=== PATIENT | male | born 1980 | race Caucasian/White ===

== ENCOUNTER 2022-03-19 07:30 | Outpatient (CLI) | payer OTHER, SELFPAY ==
--- NOTE | 2022-04-07 18:32 | WPDHOMESLEEP ---
Sleep Study - Home Unattended Date of Study: 03/19/22 Ordering Provider: India Steele MD Interpreting Provider: Yasmin Zhu, DO Home Sleep Study Type: Watch PAT Height: 1.75 m Weight: 115.666 kg Body Mass Index: 37.6 Neck Circumference (inches): 17.75 [place]: 7 Reason for Sleep Study Daytime hypersomnia Sleep History The patient is a 41-year-old male with hypertension, hypogonadism, hyperlipidemia and vitamin-D deficiency that had a sleep study ordered by his primary care physician for evaluation of sleep apnea. The patient is self employed. The patient denies awakening from sleep short of breath. He denies awakening at night with heartburn, belching or cough. He frequently snores and is occasionally loud enough that others complain. He rarely has trouble sleeping when he has a cold. He denies waking up gasping for air throughout the night. He denies having breathing problems observed by himself or others. He rarely sweats excessively at night. He occasionally has heart palpitations or irregular heartbeats throughout the night. He occasionally falls asleep during the day but never while driving. He denies sleep paralysis and cataplexy. He occasionally has trouble at school or work due to sleepiness. He frequently has vivid dreamlike scenes upon awakening or falling asleep. He denies feeling afraid of going to sleep. He denies having nightmares. He occasionally remembers his dreams. He rarely has thoughts racing through his mind. He denies feeling sad or depressed. He rarely has anxiety. He occasionally has muscular tension. He occasionally notices parts of his body jerk. He rarely kicks during the night. He frequently has crawling and aching feelings in his legs but rarely has leg pain during the night. He denies grinding his teeth during sleep and awakening with morning jaw pain. He is frequently bothered by pain during the day but never awakened by pain during the night. He constantly wakes up feeling stiff the morning. He occasionally wakes up with sore achy muscles. He constantly wakes up with pain in the neck, spine and other joints. He goes to bed between 10-11 p.m. on both weekdays and weekends. It takes him 15-20 minutes to fall asleep. He wakes up 2-3 times throughout the night to urinate. He is able to fall back asleep within 5 minutes. He wakes up at 6:30 a.m. on weekdays and 8:00 a.m. on the weekends. He typically gets 6-8 hours of sleep per night. He will stay in bed for 10 minutes after waking up in the morning. He currently lives with his and 3 children. He does not consume any caffeinated beverages within 2 hours of bedtime. He does not engage in physical exercise before bedtime. He will read and watch television before falling asleep. He denies taking naps in afternoon or the evening. He drinks 3 caffeinated beverages per day. He quit smoking cigarettes several years ago. He denies alcohol and recreational drug use. [facility] Past Medical History Medical History Essential (primary) hypertension Low testosterone level in male Other and unspecified hyperlipidemia Vitamin D deficiency Family History Family History Grandparent Diabetes mellitus Acute myocardial infarction Cerebrovascular accident Family history of chronic obstructive pulmonary disease Family history of emphysema Mother Family history of osteoporosis Father Hypertension Social History Social History Smoking status: Former smoker Smoking end date: 07/05/17 Alcohol intake: never Substance use: never Substance use type: does not use Medications Home Medications Medication Instructions Recorded Confirmed Type cholecalciferol (vitamin D3) 50 50 mcg PO DAILY 04/10/21 02/04/22 History mcg (2,000 unit) capsul
[2022-04-07 22:30] VITALS: BMI 37.6
== END 2022-03-20 13:23 | disposition home or self-care (01) ==
PROVIDERS: PCP Family Medicine; Visit Provider Family Medicine
DX: G47.10 Hypersomnia, unspecified (principal); G47.9 Sleep disorder, unspecified
CPT/HCPCS: 95800

== ENCOUNTER 2023-07-13 09:31 | Outpatient (CLI) | payer OTHER, SELFPAY ==
--- NOTE | 2023-08-02 18:14 | WPDSLEEPSTUD ---
Sleep Study Date of Study: 07/13/23 Ordering Provider: India Steele MD Interpreting Physician: Yasmin Zhu DO Sleep Study Type: Split Polysomnogram Height: 1.75 m Weight: 127.459 kg Body Mass Index: 41.5 Neck Circumference (inches): 19 [place]: 7 Reason for Sleep Study Snoring, daytime hypersomnia Sleep History The patient is a 42 year old male with hypertension, hypogonadism hyperlipidemia and history of tobacco use that had a sleep study ordered by his primary care physician for evaluation of sleep apnea. The patient denies awakening from sleep short of breath. He denies awakening at night with heartburn, belching or cough. He constantly snores and it is frequently loud enough that others complain. He occasionally has trouble sleeping when he has a cold. He denies waking up gasping for air throughout the night. He denies having breathing problems at night observed by himself or others. He denies sweating excessively at night. He occasionally has heart palpitations or irregular heartbeats during the night. He occasionally falls asleep during the day but never while driving. He denies sleep paralysis and cataplexy. He occasionally has trouble at school or work due to sleepiness. He occasionally experiences vivid dreamlike scenes upon awakening or falling asleep. He denies feeling afraid of going to sleep. He rarely has nightmares. He frequently remembers his dreams. He occasionally has thoughts racing through his mind. He rarely feels sad, depressed or anxious. He rarely has muscular tension. He rarely notices parts of his body jerk. He rarely kicks during the night. He occasionally has crawling and aching feelings in his legs but rarely has leg pain during the night. He denies grinding his teeth during sleep and denies awakening with morning jaw pain. He is occasionally bothered by pain during the day but never awakened by pain during the night. He occasionally wakes up feeling stiff in the morning. He occasionally wakes up with sore or achy muscles. He occasionally wakes up pain in the neck, spine and other joints. He goes to bed at 10:00 p.m. on weekdays and between 10-11 p.m. on the weekends. The amount of time it takes for him to fall asleep is variable. He wakes up 3 times per night at most. When he awakens, he will use the restroom and get a drink. He is able to fall back asleep within a few minutes. He wakes up at 6:30 a.m. weekdays and 8:00 a.m. on weekends. He typically gets 6-8 hours of sleep per night. He denies staying in bed after waking up in the morning on weekdays but will stay in bed for 20 minutes on the weekends. He currently lives with his and 3 children. He denies consuming any caffeinated beverages within 2 hours of bedtime. He denies engaging in physical exercise before bedtime. He will occasionally reading watch television before falling asleep. He denies taking naps in the afternoon or the evening. He consumes 3 caffeinated beverages per day. He quit smoking cigarettes over 5 years ago. He denies alcohol and recreational drug use. PMFSH Past Medical History Medical History Essential (primary) hypertension Low testosterone level in male Other and unspecified hyperlipidemia Tinnitus of both ears Vitamin D deficiency Family History Family History Grandparent Diabetes mellitus Acute myocardial infarction Cerebrovascular accident Family history of chronic obstructive pulmonary disease Family history of emphysema Mother Family history of osteoporosis Father Hypertension Social History Social History Smoking status: Former smoker (< 15 pack years) Smoking end date: 07/05/17 Alcohol intake: never Substance use: never Substance use type: does not use Lack of Transportation:
[2023-08-02 18:19] VITALS: BMI 41.5
== END 2023-07-14 06:05 | disposition home or self-care (01) ==
PROVIDERS: PCP Family Medicine; Visit Provider Family Medicine
DX: G47.33 Obstructive sleep apnea (adult) (pediatric) (principal); G47.9 Sleep disorder, unspecified; G47.10 Hypersomnia, unspecified; R29.818 Other symptoms and signs involving the nervous system
CPT/HCPCS: 95811

== ENCOUNTER 2023-12-22 01:36 | Day surgery (SDC) | payer OTHER, SELFPAY ==
[2023-12-09 09:43] VITALS: BMI 40.0
[2023-12-22 09:37] VITALS: BP 158/97; PULSE 80; RESP 20; TEMP 36.6; O2SAT 80; BMI 41.8
[2023-12-22] MEDS: LACTATED RINGERS 1,000 ML 150 ML IV CONT (09:46)
--- NOTE | 2023-12-22 10:08 | WPDANESEPPF ---
Anes - Initial Pre Proc Eval Procedure: Operation Date: 12/22/23 11:00 Proposed Procedures p Screening Colonoscopy - Kelechi Leonard MD Date/Time: 12/22/23 10:08 Surgeon: Kelechi Leonard MD Pre Op Diagnosis: Neoplasm screening Patient Data Age: 43 Gender: M Height: 1.75 m Weight: 128.6 kg Last Vital Signs Temp 98 F 12/22/23 09:37 Pulse 80 12/22/23 09:37 Resp 20 12/22/23 09:37 BP 158/97 H 12/22/23 09:37 Pulse Ox 80 L 12/22/23 09:37 O2 Del Method Room Air 12/22/23 09:37 Allergies Allergy/AdvReac Type Severity Reaction Status Date / Time No Known Allergies Allergy Mild Verified 12/22/23 09:35 Home Medications Medication Instructions Recorded Confirmed Type cholecalciferol (vitamin D3) 50 50 mcg PO DAILY 04/10/21 12/22/23 History mcg (2,000 unit) capsule testosterone enanthate 75 mg/0.5 75 mg subcut WEEKLY 02/04/22 12/22/23 History mL subcutaneous auto-injector atorvastatin 20 mg tablet (Lipitor) 20 mg PO QHS #90 tabs 07/26/23 12/22/23 Rx CPAP and supplies #1 ea 09/21/23 12/22/23 Rx lisinopril 20 1 tablet PO DAILY #90 tabs 11/12/23 12/22/23 Rx mg-hydrochlorothiazide 25 mg tablet Patient hx anesthesia problems: none Family hx anesthesia problems: none Results Review: All pre-operative results and documents have been reviewed as part of the pre-operative evaluation. [facility] Past Medical History Medical History Essential (primary) hypertension Low testosterone level in male Other and unspecified hyperlipidemia Tinnitus of both ears Vitamin D deficiency Family History Family History Grandparent Diabetes mellitus Acute myocardial infarction Cerebrovascular accident Family history of chronic obstructive pulmonary disease Family history of emphysema Mother Family history of osteoporosis Father Hypertension Social History Social History Smoking packs per day: 1 Smoking cigarettes per day: 20.0 Years smoked: 8 Smoking pack-years: 8.00 Smoking status: Former smoker Tobacco type: cigarettes Smoking end date: 07/05/17 Alcohol intake: never Substance use: never Substance use type: does not use Lack of Transportation: No Lack of Food: Never True Current Housing: I Have Housing Concerned About Future Housing: No Difficulty Paying Gas/Electric Bills: No Difficulty Paying for Meds: No Currently Unemployed: No Education: High School Diploma/GED Difficulty w/ Childcare or Family Care: No Spiritual care concerns: No Anes - Eval Final PreProcedure Day of Procedure 12/22/23 10:08 Patient weight: obese Heart: regular rate and rhythm Lungs: clear to auscultation Airway: Mallampati scale class II Neurological: alert and oriented Last oral intake: >/= 8 hours ASA classification: III Emergent: no Anesthetic plan: proceed Anesthesia type and monitoring: general and standard monitoring Results Review: All pre-operative results and documents have been reviewed as part of the pre-operative evaluation. Pt w HTN, hyperlipidemia, SARAH on CPAP. Informed Consent: The patient's anesthetic plan and its attendant risks and benefits were discussed with the patient/family/POA. Questions were solicited and answers provided to the satisfaction of the patient/family/POA.
--- NOTE | 2023-12-22 10:41 | PM.HPGS ---
History of Present Illness History of Present Illness Consent: Risks, benefits, and alternatives have been discussed and questions answered. Patient agrees to proceed with procedure. Chief complaint: Neoplasm screening Narrative: Tex Zapata is a 43 year old male here for first screening colonoscopy Review of Systems Review of Systems: All systems reviewed & are unremarkable except as noted in HPI and below PMFSH Past Medical History Medical History (Updated 12/22/23 @ 10:43 by Kelechi Leonard MD) Colon cancer screening Essential (primary) hypertension Low testosterone level in male Other and unspecified hyperlipidemia Tinnitus of both ears Vitamin D deficiency Family History Family History Grandparent Diabetes mellitus Acute myocardial infarction Cerebrovascular accident Family history of chronic obstructive pulmonary disease Family history of emphysema Mother Family history of osteoporosis Father Hypertension Social History Social History Smoking packs per day: 1 Smoking cigarettes per day: 20.0 Years smoked: 8 Smoking pack-years: 8.00 Smoking status: Former smoker Tobacco type: cigarettes Smoking end date: 07/05/17 Alcohol intake: never Substance use: never Substance use type: does not use Lack of Transportation: No Lack of Food: Never True Current Housing: I Have Housing Concerned About Future Housing: No Difficulty Paying Gas/Electric Bills: No Difficulty Paying for Meds: No Currently Unemployed: No Education: High School Diploma/GED Difficulty w/ Childcare or Family Care: No Spiritual care concerns: No Meds Home Medications and Allergies Home Medications Medication Instructions Recorded Confirmed Type cholecalciferol (vitamin D3) 50 50 mcg PO DAILY 04/10/21 12/22/23 History mcg (2,000 unit) capsule testosterone enanthate 75 mg/0.5 75 mg subcut WEEKLY 02/04/22 12/22/23 History mL subcutaneous auto-injector atorvastatin 20 mg tablet (Lipitor) 20 mg PO QHS #90 tabs 07/26/23 12/22/23 Rx CPAP and supplies #1 ea 09/21/23 12/22/23 Rx lisinopril 20 1 tablet PO DAILY #90 tabs 11/12/23 12/22/23 Rx mg-hydrochlorothiazide 25 mg tablet Allergies Allergy/AdvReac Type Severity Reaction Status Date / Time No Known Allergies Allergy Mild Verified 12/22/23 09:35 Vital Signs Vital Signs - 24 hr 12/22/23 09:37 Temperature 98 F Pulse Rate 80 Respiratory Rate 20 Blood Pressure 158/97 H Pulse Oximetry 80 L Oxygen Delivery Room Air Exam Const: General: comfortable and no acute distress HENMT: Face/Nose/Sinus: Normal nares present Eyes: General: appearance normal, both eyes and all related structures Neck: Neck: no JVD Resp: Auscultation: clear to auscultation bilaterally Cardio: Rate: regular rate Rhythm: regular rhythm GI: Inspection: non-distended GI Palp: Yes Soft to palpation Skin: General skin exam: normal color Neuro: General: gait normal Speech: normal speech Extrem: General: normal to inspection Psych: Mental Status: mental status grossly normal Assessment and Plan Assessment and plan (1) Colon cancer screening: Code(s): Z12.11 - Encounter for screening for malignant neoplasm of colon Status: Acute Assessment and Plan: colonoscopy
[2023-12-22 10:59] VITALS: BP 91/59; PULSE 75; RESP 15; O2SAT 96
[2023-12-22 11:09] VITALS: BP 115/65; PULSE 76; RESP 21; O2SAT 98
[2023-12-22 11:19] VITALS: BP 113/77; PULSE 85; RESP 20; O2SAT 98
== END 2023-12-22 11:36 | disposition home or self-care (01) ==
PROVIDERS: PCP Family Medicine; Visit Provider Internal Medicine Gastroenterology
PROC: 0DJD8ZZ Inspection of Lower Intestinal Tract, Via Natural or Artificial Opening Endoscopic (ICD-10-PCS; CPT 45378; principal; 2023-12-22 11:00)
DX: Z12.11 Encounter for screening for malignant neoplasm of colon (principal); D12.3 Benign neoplasm of transverse colon; K64.8 Other hemorrhoids; I10 Essential (primary) hypertension; E78.49 Other hyperlipidemia; E55.9 Vitamin D deficiency, unspecified; Z79.890 Hormone replacement therapy; Z87.891 Personal history of nicotine dependence; E66.9 Obesity, unspecified; Z68.41 Body mass index [BMI] 40.0-44.9, adult
CPT/HCPCS: 45380; 88305; J2001; J2704; J7120

== ENCOUNTER 2025-05-13 17:13 | Emergency (ER) | payer OTHER, SELFPAY ==
--- NOTE | ~2025-05-13 | XR_ITS ---
EXAMINATION: XR finger 5th LT min 2V, 05/13/2025 17:53 DIRECTOR HEALTH HISTORY: laceration COMPARISON: No comparisons available. Findings: No acute fracture or malalignment. No significant degenerative changes. Soft tissues unremarkable. Impression: No acute fracture or malalignment. Reviewed, dictated and finalized at location P. [facility] Impression: No acute fracture or malalignment.
--- NOTE | 2025-05-13 17:36 | ED.WOUNDLAC ---
HPI - Wound/Laceration General Chief Complaint: Wound/Laceration Stated Complaint: laceration Time Seen by Provider: 05/13/25 17:19 Source: patient Mode of arrival: ambulatory Limitations: no limitations History of Present Illness HPI narrative: This is a 44 year old male that presents to the ER for laceration to the left 5th finger. Sustained just prior to arrival. Reports he accidentally cut his finger with a knife. Not up to date on tetanus. Reports decreased ROM. Denies numbness. Related Data Home Medications ?Medication ?Instructions ?Recorded ?Confirmed ?Last Taken ?Type cholecalciferol (vitamin D3) 50 50 mcg PO DAILY 04/10/21 10/19/24 12/21/23 History mcg (2,000 unit) capsule testosterone enanthate 75 mg/0.5 75 mg subcut WEEKLY 02/04/22 10/19/24 Unknown History mL subcutaneous auto-injector Allergies Allergy/AdvReac Type Severity Reaction Status Date / Time No Known Allergies Allergy Mild Verified 10/19/24 09:38 Review of Systems Review of Systems: All systems reviewed & are unremarkable except as noted in HPI and below PMFSH Past Medical History Medical History Colon cancer screening Tinnitus of both ears Vitamin D deficiency Essential (primary) hypertension Other and unspecified hyperlipidemia Low testosterone level in male Family History Family History Grandparent Diabetes mellitus Acute myocardial infarction Cerebrovascular accident Family history of chronic obstructive pulmonary disease Family history of emphysema Mother Family history of osteoporosis Father Hypertension Social History Social History Smoking packs per day: 1 Smoking cigarettes per day: 20.0 Years smoked: 8 Smoking pack-years: 8.00 Tobacco type: cigarettes Smoking end date: 07/05/17 Alcohol intake: never Substance use: never Substance use type: does not use Lack of Transportation: No Lack of Food: Never True Current Housing: I Have Housing Concerned About Future Housing: No Difficulty Paying Gas/Electric Bills: No Difficulty Paying for Meds: No Currently Unemployed: No Education: High School Diploma/GED Difficulty w/ Childcare or Family Care: No Spiritual care concerns: No Exam Narrative: GENERAL: Well-appearing, well-nourished, and in no acute distress. HEAD: Normocephalic, atraumatic. EYES: EOMI. EXTREMITIES: Patient unable to flex at the left fifth finger DIP joint. No edema. 2cm linear laceration into subcutaneous tissue to the 5th finger palmar aspect distal phalanx SKIN: Warm, dry, no rash. NEURO: No focal deficits. Alert and oriented x3. PSYCH: Normal mood and affect Course Vital Signs Vital signs: Vital Signs Temperature 98 F 05/13/25 17:55 Pulse Rate 100 05/13/25 17:55 Respiratory Rate 20 05/13/25 17:55 Blood Pressure 156/112 H 05/13/25 17:55 Pulse Oximetry 100 05/13/25 17:55 Oxygen Delivery Room Air 05/13/25 17:55 Temperature 98 F 05/13/25 17:55 Pulse Rate 100 05/13/25 17:55 Respiratory Rate 20 05/13/25 17:55 Blood Pressure 156/112 H 05/13/25 17:55 Pulse Oximetry 100 05/13/25 17:55 Oxygen Delivery Room Air 05/13/25 17:55 Procedures Laceration Laceration 1: Date: 05/13/25 Time: 18:59 Site: upper extremity Side (If applicable): left Size (cm): 2 Description: linear Depth: simple, single layer Local Anesthetic: lidocaine 1% Amount of anesthesia used (mL): 2 Pre-repair: wound explored and irrigated ====== Skin Level ====== Skin layer closed with: nylon Size (cm): 4-0 Number of sutures: 5 Technique: simple, interrupted ====== Subcutaneous Layer ====== ====== Muscle Layer ====== ====== Tendon Layer ====== Orthopedic Splinting/Casting Injury #1: Splinting/Casting Date: 05/13/25 Splinting/Casting Time: 19:04 Side: left Upper Extremity Injury Location: finger Pre-Formed: metal foam finger splint Pre-Procedure Neuro Vascular Exam: normal Post-Procedure Neuro Vascular Exam: normal MDM - Wound/Laceration MDM Narrative Medical decision making narrative: Patient presents to the ER for laceration to the left 5th finger. Updated on tetanus vaccination. Wound irrigated and closed with sutures. No obvious tendon injury on exam, although patient is having difficulty flexing at the DIP joint. Placed in splint. Will be given follow up with hand surgery Differential Diagnosis Differential diagnosis: Likely laceration, abrasion and avulsion of skin Imaging Data Radiologist's impression: ITS Impressions Finger X-Ray 05/13/25 18:03 Impression: No acute fracture or malalignment. Critical Care Time Critical Care Time Critical Care Time: No Discharge Plan Discharge Clinical Impression: Laceration of finger Qualifiers: Encounter type: initial encounter Finger: little finger Damage to nail status: without damage Foreign body presence: without foreign body Laterality: left Qualified Code(s): S61.217A - Laceration without foreign body of left little finger without damage to nail, initial encounter Patient Disposition: Home Condition: Stable Instructions: Antibiotic Form, Care For Your Stitches (ED), Laceration (ED) Additional Instructions: Return to the emergency department if you experience fever, redness or swelling of your wound, abnormal drainage from your wound, or any other symptoms that are concerning to you. Apply antibiotic ointment daily. Do not soak the wound. Clean with mild soap and water daily. Take oral antibiotic as prescribed. Wear splint Follow-up with hand surgery (Dr. Miranda). Sutures will need removed in 10-14 days. Patient Language: Uzbek Prescriptions: New cephalexin 500 mg capsule 500 mg PO Q8H 5 Days Qty: 15 0RF No Action cholecalciferol (vitamin D3) 50 mcg (2,000 unit) capsule 50 mcg PO DAILY testosterone enanthate 75 mg/0.5 mL auto-injector 75 mg subcut WEEKLY atorvastatin [Lipitor] 20 mg tablet 20 mg PO QHS Qty: 90 1RF (DME) CPAP and supplies See Rx Instructions .Route .MEDSUPPLY Qty: 1 0RF Rx Instructions: As directed Resmed AirSense 11 CPAP at 10 cm H2O, size medium Resmed AirFit F20 full face mask, CPAP filters/tubing and heated humidity. lisinopril-hydrochlorothiazide 20-25 mg tablet 1 tablet PO DAILY Qty: 90 1RF Follow-up/Referrals: Michell Miranda MD [Physician, Plastic Surgery] Janie Steele MD [Primary Care Provider, Family Practice]
[2025-05-13 17:55] VITALS: BP 156/112; PULSE 100; RESP 20; TEMP 36.6; O2SAT 100
--- OUTSIDE RECORDS SUMMARY | 2025-05-13 18:03 | XMS_ITS | Clinical Summary ---
Author Organization [facility] [address] [facility] Address [address] [place] [address] Care Team Providers Care Ramp Agent Name Role Phone No, Physician Primary Care Provider [phone] Allergies No known active allergies Medications testosterone 20.25 mg/1.25 gram (1.62 %) gel in metered-dose pump APPLY 2 PUMPS TO HAIRLESS AREA ON UPPER ARM OR SHOULDER ONCE D 1 05/31/2019 Active lisinopriL (PRINIVIL,ZESTR ME) 10 mg tablet Take 1 tablet (10 mg total) by mouth daily Active Active Problems No known active problems Social History Tobacco Use Types Packs/Day Years Used Date Smoking Tobacco: Former Smokeless Tobacco: Never Personal Safety Answer Date Recorded Getting School Help Needed Not on file 09/16 Sex and Gender Information Value Date Recorded Sex Assigned at Not on file Legal Sex Male 5:16 PM [employer]ER [employer] Gender Identity Not on file Sexual Orientation Not on file Last Filed Vital Signs Vital Sign Reading Time Taken Comments Blood Pressure 136/88 11/21/2022 5:50 PM CDT Pulse 86 11/21/2022 5:50 PM CDT Temperature 36.7 C (98 F) 11/21/2022 5:50 PM CDT Respiratory Rate 16 11/21/2022 5:50 PM CDT Oxygen Saturation 96% 11/21/2022 5:50 PM CDT Inhaled Oxygen Concentration - - Weight 122.5 kg (270 lb) 11/21/2022 5:50 PM CDT Height 175.3 cm (5' 9) 11/21/2022 5:50 PM CDT Body Mass Index 39.87 11/21/2022 5:50 PM CDT Plan of Treatment Health Maintenance Due Date Last Done Comments Colon Cancer Screening-Colonoscopy 1978 Depression Screening 1978 Hepatitis C Screening 1978 DTaP/Tdap/Td Vaccine (1 - Tdap) 1989 Hepatitis B Screening 1996 Regular Well Visit/Exam 18-64 1996 Influenza Vaccine (#1) 2025 HPV Vaccines Aged Out No longer eligi ble based on patient's age to complete this topic Pneumococcal vaccine <65 Aged Out No longer eligible based on patient's age to complete this topic Insurance [facility] CHO[facility] PL[facility] Care Teams Ramp Agent Relationship Specialty Start Date End Date No, Physician PCP - General 06/23/19
--- OUTSIDE RECORDS SUMMARY | 2025-05-13 18:03 | XMS_ITS | Clinical Summary ---
Author Organization [facility] Address [address] [place] [address] Care Team Providers Care Shipping Inspector Name Role Phone Provider, None Primary Care Provider Unavailabl e Allergies No known active allergies Medications testosterone (ANDROGEL) 25 MG/2.5GM (1%) Gel Apply daily. Active Social History Tobacco Use Types Packs/Day Years Used Date Smoking Tobacco: Former Smokeless Tobacco: Never Alcohol Use Standard Drinks/Week Comments Never 0 (1 standard drink = 0.6 oz pur e alcohol) AUDIT-C Answer Date Recorded Frequency of Alcohol Consumption Never 04/05/2019 Average Number of Drinks Not on file 019 Frequency of Binge Drinking Not on file 08/2018 Sex and Gender Information Value Date Recorded Sex Assigned at Not on file Legal Sex Male 8:05 AM CDT Gender Identity Not on file Sexual Orientation Not on file Last Filed Vital Signs Vital Sign Reading Time Taken Comments Blood Pressure 168/108 04/05/2019 8:22 AM CDT Pulse 101 04/05/2019 8:22 AM CDT Temperature 37.2 C (99 F) 04/05/2019 8:22 AM CDT Respiratory Rate - - Oxygen Saturation 96% 04/05/2019 8:22 AM CDT Inhaled Oxygen Concentration - - Weight 122.5 kg (270 lb) 04/05/2019 8:22 AM CDT Height 175.3 cm (5' 9) 04/05/2019 8:22 AM CDT Body Mass Index 39.87 04/05/2019 8:22 AM CDT Plan of Treatment Health Maintenance Due Date Last Done Comments Hepatitis C Virus (HCV) Screening 1978 TdaP Immunization 1978 Hepatitis B Immunization (1 of 3 - 19+ 3-dose series) 1997 Cologuard 09/15/2023 Colonoscopy 09/15/2023 Colorectal Cancer Screening 09/15/2023 Immunochemical Fecal Occult Blood 09/15/2023 Influenza Immunization (#1) 2025 SARS-COV-2 Immunization ( season) 2025 05/13/2021, 09/09/2020 Respiratory Syncytial Virus (RSV) Immunization (Adult) (1 - 1-dose 75+ series) 2053 Human Papillomavirus (HPV) Immunization Aged Out No longer eligible b ased on patient's age to complete this topic Meningococcal Immunization (ACWY) Aged Out No longer eligible b ased on patient's age to complete this topic Pneumococcal Immunization Combined Aged Out No longer eligible b ased on patient's age to complete this topic Rotavirus Immunization Aged Out No lo nger eligible based on patient's age to complete this topic Care Teams Shipping Inspector Relationship Specialty Start Date End Date Provider, None [place] PCP - General 04/05/19
--- NOTE | 2025-05-13 18:31 | PC.NURSE ---
patient was provided a TDAP vaccine information sheet at this time
[2025-05-13] MEDS: TETANUS,DIPHTHERIA,AC PERTUSSIS ADULT (0.5 ML) BOOSTRIX IM (19:01)
== END 2025-05-13 19:14 | disposition home or self-care (01) ==
PROVIDERS: Emergency Provider Physician Assistant; PCP Family Medicine
DX: S61.217A Laceration without foreign body of left little finger without damage to nail, initial encounter (principal); W26.0XXA Contact with knife, initial encounter; Z23 Encounter for immunization; I10 Essential (primary) hypertension; E55.9 Vitamin D deficiency, unspecified; E78.5 Hyperlipidemia, unspecified; Z87.891 Personal history of nicotine dependence
CPT/HCPCS: 12001; 73140; 90471; 90715; 99283

== ENCOUNTER 2025-05-17 12:30 | Outpatient (CLI) | payer OTHER, SELFPAY ==
--- NOTE | ~2025-05-17 | MR_ITS ---
EXAMINATION: MR hand LT wo con DATE: 05/17/2025 13:12 INDICATION: Evaluation for laceration to the flexor digitorum profundus tendon to the left fifth digit TECHNIQUE: Magnetic resonance imaging (MRI) of the left hand to include the digits and metacarpals but which excludes the majority of the carpus was performed without intravenous contrast to include the metacarpals and digits. Sequences included sagittal, coronal, and axial. T1-weighted FSE and T2-weighted FS FSE. COMPARISON: None FINDINGS: Bone alignment is normal. Small low signal intensity bone island at the head of the first metacarpal. No fracture or pathologic marrow replacing process. Minimal to mild polyarticular osteoarthritis at the first carpometacarpal, first metacarpophalangeal and multiple interphalangeal joints with distal predominance. There is a full-thickness tear near the distal phalangeal insertion of the flexor digitorum profundus tendon to the fifth digit with the proximal tear margin retracted to the level of the metacarpophalangeal joint. The tendon is folded back upon itself forming a flattened S-shaped loop me asuring 2 cm in length extending from slightly distal to the level of the hook of the hamate to the level of the junction of the mid to distal third of the metacarpal. This can be best appreciated on series 7, image 8 which also demonstrates the distal extent of the retracted tear margin. The flexor di gitorum superficialis to the fifth digit appears diminutive but intact. Visualized portion of the remaining flexor and extensor tendons of the hand are normal. The collateral ligament complexes at the metacarpophalangeal and interphalangeal joints are normal. Intrinsic musculature is unremarkable. IMPRESSION: 1. Complete tear and approximately 5.5 cm proximal retraction of the flexor digitorum profundus tendons to the fifth digit. Reviewed, dictated and finalized at location A. ER SERVICES COORDINATOR IMPRESSION: 1. Complete tear and approximately 5.5 cm proximal retraction of the flexor dig itorum profundus tendons to the fifth digit.
--- OUTSIDE RECORDS SUMMARY | 2025-05-17 13:05 | XMS_ITS | Clinical Summary ---
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 [id number] [place] [address] Care Teams Medical Unit Secretary Relationship Specialty Start Date End Date No, Physician PCP - General 06/23/19
--- OUTSIDE RECORDS SUMMARY | 2025-05-17 13:05 | XMS_ITS ---
Author Organization Unknown ENCOUNTERS Encounter Performer Location Date Diagnosis Diagnosis [facility] [address] [place] [address] [id number] Pre Admit [facility] [address] [place] [address] [id number] Emergency [facility] [address] [place] [address] [id number] [facility] Outpatient [facility] [address] [place] [address] [id number] [facility] Outpatient [facility] [address] [place] [address] [id number] [facility] Outpatient [facility] [address] [place] [address] [id number] [facility] *Note: Encounters from your own facility or health system may be excluded. Allergies, Adverse Reactions, Alerts Allergen Type Severity Identification Date Medications Name Date Quantity Days Supplied GPI Number
--- OUTSIDE RECORDS SUMMARY | 2025-05-17 13:05 | XMS_ITS | Clinical Summary ---
Author Organization [facility] Address [address] [place] [address] Care Team Providers Care Mechanical Artist Name Role Phone Provider, None Primary Care [...] age to complete this topic Care Teams Mechanical Artist Relationship Specialty Start Date End Date Provider, None [place] PCP - General 04/05/19
== END 2025-05-17 12:31 | disposition home or self-care (01) ==
PROVIDERS: PCP Family Medicine; Visit Provider Plastic Surgery
DX: S66.012A Strain of long flexor muscle, fascia and tendon of left thumb at wrist and hand level, initial encounter (principal); X58.XXXA Exposure to other specified factors, initial encounter
CPT/HCPCS: 73218

== ENCOUNTER 2025-05-22 10:08 | Outpatient (CLI) | payer OTHER, SELFPAY ==
--- NOTE | 2025-05-22 10:19 | ECG_ITS ---
Test Date: 2025-05-22 10:36:03 Measurements Intervals [place] Rate: 88 P: 33 KS: 152 QRS: -32 QRSD: 100 T: 12 QT: 335 QTc: 407 Interpretive Statements SINUS RHYTHM MARKED LEFT AXIS DEVIATION [QRS AXIS < -30] INCOMPLETE RIGHT BUNDLE BRANCH BLOCK [90+ ms QRS DURATION, TERMINAL R IN V1/V2, 40+ ms S IN I/aVL/V4/V5/V6] MODERATE VOLTAGE CRITERIA FOR LVH, CONSIDER NORMAL VARIANT [MEETS CRITERIA IN ONE OF: R(aVL), S(V1), R(V5), R(V5/V6)+S(V1)] CONSIDER TYPE 3 BRUGADA PATTERN (NON-DIAGNOSTIC) [COVED/SADDLEBACK ST ELEVATION > 0.1mV IN 2 OF V1-3] ABNORMAL ECG Electronically Signed On 05-22-2025 15:52:41 STONEMASON APPRENTICE by Ford Gilbert M.D.
[2025-05-22 12:22] LABS: Anion Gap 8 mmol/L (4-12); Blood Urea Nitrogen 14 mg/dL (9-20); Calcium 9.3 mg/dL (8.4-10.2); Carbon Dioxide 30 mmol/L (22-30); Chloride 99 mmol/L (98-107); Estimated Glomerular Filt Rate > 60; Glucose 102 mg/dL (65-110); Potassium 4.3 mmol/L (3.4-5.0); Sodium 137 mmol/L (137-145)
== END 2025-05-22 10:09 | disposition home or self-care (01) ==
LOC: ANHSURGERY 10:13
PROVIDERS: Anesthesiology; PCP Family Medicine; Visit Provider Plastic Surgery
DX: E78.5 Hyperlipidemia, unspecified (principal); I10 Essential (primary) hypertension; Z79.899 Other long term (current) drug therapy; Z01.818 Encounter for other preprocedural examination; I45.10 Unspecified right bundle-branch block
CPT/HCPCS: 36415; 80048; 93005

== ENCOUNTER 2025-05-23 01:38 | Day surgery (SDC) | payer OTHER, SELFPAY ==
[2025-05-21 11:31] VITALS: BMI 39.7
--- NOTE | 2025-05-21 11:42 | PC.NURSE ---
Addendum entered by Shayy Leonard RN 05/21/25 11:49: 05/23/25 DATE OF SURGERY Addendum entered by Shayy Leonard RN 05/21/25 11:47: Pt surgery is at 2:30pm on 05/14/25 , pt will get his EKG and Blood test next day or two JRRN Original Note: [facility] has started construction of its new state of the art ER which will open Spring 2026. With this, we anticipate parking may be a challenge for some our surgical patients and families. Parking spaces are limited but are available for all Surgical, obstetrics, and ER patients sharing this lot. If you arrive and find you are having a hard time finding a parking space, please note that we understand the challenges, please drive around the hospital and park near Hospital Entrance 1. When you enter this entrance, you can ask a volunteer to direct or take you back to the surgical waiting area to check in. We appreciate everyone?s understanding of these expected challenges while we build for your future. Report to the Outpatient Waiting Room, entrance under the green pavilion located off [address], at time __1230pm on date . Planned Procedure Time: .? Time changes happen often and if your time is changed the preop area will call you the afternoon before. - You and your visitor will be asked to self-screen and do not enter if you have any COVID symptoms. Please call surgeon if you need to reschedule. - A mask is optional within the hospital at this time. Patients may Have No food or drink from midnight until time of surgery and no smoking, or chewing tobacco (or any form of nicotine). No chewing gum, candy or mints. Take only the following medications with a SIP of water on the morning of surgery: None DO NOT STOP ANY OF YOUR OTHER PRESCRIPTION MEDICATIONS PRIOR TO SURGERY EXCEPT THE FOLLOWING Hold all vitamins and supplements for 3 days per anesthesiologist. Medications to discontinue per physician ____NONE Date to take last dose NONE Please no make-up, nail peruvian, hairspray, perfume, deodorant, or body powder the day of surgery.? No jewelry (including any body piercings) or valuables the day of surgery, leave them at home.? Please take a shower or bath the night before, or the morning of, surgery with an antibacterial soap.? Wear comfortable, loose fitting clothing.? - Jewelry must be removed prior to entering the operating room.? Rings and piercings that are not removed may be cut off. - The hospital will not accept responsibility for valuables.? - Please leave all valuables, including medications, at home the day of surgery. If you are going home after surgery, a licensed special events driver must drive you home.? - NO public transportation without another adult if you receive anesthesia. - We recommend that an adult stay with you for 24 hours following discharge. - We also recommend that you do not drive, make important decision, drink alcoholic beverages, or take any drugs that were not prescribed by your health care provider for at least 24 hours after your discharge time. Follow any additional instructions given to you from your surgeon. Telephone instructions given to ___Patient and asked if any additional questions and then verbalized understanding. Patient advised to call surgeon office or pre surgery nurse liaison [phone] if any additional questions.
--- NOTE | ~2025-05-23 | XR_ITS ---
EXAMINATION: XR surgery orthopedic DATE: 05/23/2025 16:03 INDICATION: Fifth digit tendon repair TECHNIQUE: 5 fluoroscopic images of the fifth digit of the left hand were obtained procedure performed by Dr. Miranda. Radiologist was not present for the imaging or procedure. The amount of fluoroscopy time used during this procedure was 0.2 minutes. The dose area product was 0.679 cGycm^2. COMPARISON: Radiographs dated 05/13/2025 and MRI dated 05/17/2025 FINDINGS: Images demonstrate an S-shaped lucency likely representing the operative wound projecting over the fifth digit. Tissue retractors are seen at outside surgical wound at the palmar aspect of the base of the distal phalanx. Additional soft tissue retractors are seen at the palmar aspect of the hand at the level of the distal fifth metacarpal. Suture anchor has been placed at the palmar base of the distal phalanx likely for flexor tendon repair. IMPRESSION: 1. Fluoroscopy utilized during likely flexor digitorum longus tendon repair of the fifth digit. See procedure note for further detail. Reviewed, dictated and finalized at location A. RIAL MANAGER
--- OUTSIDE RECORDS SUMMARY | 2025-05-23 05:37 | XMS_ITS ---
Author Organization Unknown ENCOUNTERS Encounter Performer Location Date Diagnosis Diagnosis Status Outpatient [facility] [address] [place] [address] [id number] Outpatient [facility] [address] [place] [address] [id number] [facility] Outpatient [facility] [address] [place] [address] [id number] [facility] Pre Admit [facility] [address] [place] [address] [id number] Emergency [facility] [address] [place] [address] [id number] [facility] Outpatient [facility] [address] [place] [address] [id number] [facility] Outpatient [facility] [address] [place] [address] [id number] [facility] Outpatient [facility] [address] [place] [address] [id number] H[facility] *Note: Encounters from your own facility or health system may be excluded. Allergies, Adverse Reactions, Alerts Allergen Type Severity Identification Date Medications Name Date Quantity Days Supplied [facility] Number
--- OUTSIDE RECORDS SUMMARY | 2025-05-23 05:37 | XMS_ITS | Clinical Summary ---
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
--- OUTSIDE RECORDS SUMMARY | 2025-05-23 05:37 | XMS_ITS | Clinical Summary ---
Author Organization [facility] Address [address] [place] [address] Care Team Providers Care Naval Designer Name Role Phone Provider, None Primary Care [...] age to complete this topic Care Teams Naval Designer Relationship Specialty Start Date End Date Provider, None [place] PCP - General 04/05/19
--- NOTE | 2025-05-23 06:33 | WPDHPUPDATE1 ---
History and Physical Update Update Date/Time: 05/23/25 06:33 Patient seen and examined in pre-operative holding area. No interval change in medical history or symptoms. Patient recalls previous discussion of benefits and alternatives to procedure. Continues to desire to proceed with left small finger exploration and possible tendon repair. Reviewed procedure, post-op expectations and risks including but not limited to bleeding, infection, injury to tendon/nerve/vessel, decreased hand function, stiffness, RSD, no change or worsening of symptoms, failure of repair, need for further procedures. I discussed the possible use of assistants and their participation in the case. Patient stated understanding and signed the consent form wishing to proceed.
--- NOTE | 2025-05-23 06:34 | W.PM.PROC2 ---
Procedure Note - Detailed Date of Procedure 05/23/25 Pre-op Diagnosis laceration of flexor tendon left 5th finger Post-op Diagnosis Same Procedure Performed exploration left small finger and repair FDP Surgeon Michell Miranda MD Hooking Machine Operator Lori Avalos PA-C Anesthesia General Description of Procedure INFORMED CONSENT: The patient was seen and examined and marked in the pre-op area.? The patient signed the consent form. PROCEDURE IN DETAIL:The patient taken back to OR on the stretcher in supine position. Time out performed with anesthesia, surgeon and staff agreeing on patient's name site and surgery to be performed SCDs were placed on the lower extremities and inflated. A tourniquet was placed on {left} upper extremity and antibiotics given IV After anesthesia administered sedation i removed his previous sutures and I injected {6}cc 1%lido and 0.5% marcaine plain at the operative site The?{left upper extremity}?was prepped and draped in sterile fashion the??{left upper extremity} was? exsanguinated with Esmarch bandage and tourniquet inflated to 250mmHg Using 15 blade scalpel I proceeded with making Zheng incisions incorporating his previous laceration going distally and proximally through skin and dermis. Littler scissors were used to elevate skin flaps and subcutaneous plane down to flexor sheath. Exploration of the laceration area noted what appeared to be intact ulnar digital nerve though appeared to be close to the trifurcation and questionable remnant of the radial digital nerve at that level. Proximally the nerurovascular bundles were protected throughout the procedure. There did not appear to be any laceration or further injry to the pulleys or volar plateI identified intact FDS but FDP was not present in this field of view even with pressure on the forearm and the palm on flexion of the fingers. I proceeded with going over the A1 alex where I proceeded with making an oblique incision through skin and dermis with 15 blade scalpel. Littler scissors were spread used to spread down to the A1 alex. The A1 alex was incised with 15 blade scalpel revealing the FDS tendon but no FDP was in this field of view. Was not able to express or grasp the FDP tendon with placing a clamp proximally under the sheath. I extended my incision more proximally proximal to the distal palmar crease with 15 blade scalpel and spreading down to the palmar pulleys. Here I identified a hematoma and made an incision in the palmar alex and identified the FDP tendon. This tendon was then able to be pulled out to length and passed through the FDS chiasm under the A2 A4 and a A5 pulleys. A very small remnant of the FDP insertion on the distal phalanx was appreciated in using 3-0 FiberWire suture and modified Bob suture I repaired the tendon down to this stump. For further reinforcement area proceeded with placing an Arthrex micro corkscrew anchor using 4-0 FiberWire in standard fashion and verified its placement on multiple views of mini fluoroscopy. The suture anchor 4-0 FiberWire suture was then used to further secure the FDP tendon down to distal phalanx. Proximal tension on the FDP noted reasonable gliding and movement of the D IP joint without impingement and there was no gapping appreciated at the FDP repair site. I irrigated with normal saline. Closure was performed with 4-0 chromic suture. A dressing of xeroform , 4x4, jeanette, and an ulnar gutter splint was applied for patient safety, security, and comfort and secured with an bob bandage after the tourniquet was let down noting the hand was warm and well perfused. The patient was then awaken from anesthesia and transferred to the recovery room in stable condition.? Complications - none EBL- 4cc Disposition - home in stable condition Lori Avalos PA-C was essential for positioning, retraction, closure and dressing placement. [facility] Billing Surgery - Charge Forward: Surgery Billing ([id number] same for lori adding )
[2025-05-23] MEDS: LACTATED RINGERS 1,000 ML 30 ML IV CONT (12:30)
--- NOTE | 2025-05-23 13:49 | WPDANESEPPF ---
Anes - Initial Pre Proc Eval Procedure: Operation Date: 05/23/25 13:00 Proposed Procedures p Left Small Finger Tendon Repair - Michell Miranda MD Date/Time: 05/23/25 13:49 Surgeon: Michell Miranda MD Pre Op Diagnosis: laceration of flexor tendon left 5th finger Patient Data Age: 44 Gender: M Height: 1.77 m Weight: 124 kg Allergies Allergy/AdvReac Type Severity Reaction Status Date / Time No Known Allergies Allergy Mild Verified 05/21/25 11:28 Home Medications ?Medication ?Instructions ?Recorded ?Confirmed ?Type cholecalciferol (vitamin D3) 50 50 mcg PO DAILY 04/10/21 05/21/25 History mcg (2,000 unit) capsule testosterone enanthate 75 mg/0.5 75 mg subcut WEEKLY 02/04/22 05/21/25 History mL subcutaneous auto-injector CPAP and supplies #1 ea 09/21/23 05/21/25 Rx atorvastatin 20 mg tablet (Lipitor) 20 mg PO QHS #90 tabs 10/19/24 05/21/25 Rx lisinopril 20 1 tablet PO DAILY #90 tabs 04/17/25 05/21/25 Rx mg-hydrochlorothiazide 25 mg tablet cephalexin 500 mg capsule 500 mg PO Q12H #14 caps 05/23/25 Rx hydrocodone 5 mg-acetaminophen 325 1 tablet PO Q6H PRN pain #12 tabs 05/23/25 Rx mg tablet Patient hx anesthesia problems: none Family hx anesthesia problems: none Results Review: All pre-operative results and documents have been reviewed as part of the pre-operative evaluation. [facility] Past Medical History Medical History Colon cancer screening Tinnitus of both ears Vitamin D deficiency Essential (primary) hypertension Other and unspecified hyperlipidemia Low testosterone level in male Family History Family History Grandparent Diabetes mellitus Acute myocardial infarction Cerebrovascular accident Family history of chronic obstructive pulmonary disease Family history of emphysema Mother Family history of osteoporosis Father Hypertension Social History Social History Smoking packs per day: 1 Smoking cigarettes per day: 20.0 Years smoked: 16 Smoking pack-years: 16.00 Smoking status: Former smoker Tobacco type: cigarettes Second hand tobacco smoke exposure: No Smoking end date: 07/05/15 Alcohol intake: never Substance use: never Substance use type: does not use Lack of Transportation: No Lack of Food: Never True Current Housing: I Have Housing Concerned About Future Housing: No Difficulty Paying Gas/Electric Bills: No Difficulty Paying for Meds: No Currently Unemployed: No Education: High School Diploma/GED Difficulty w/ Childcare or Family Care: No Living arrangements: with family Spiritual care concerns: No Anes - Eval Final PreProcedure Day of Procedure 05/23/25 13:49 Patient weight: obese Lungs: normal air movement Airway: Mallampati scale class II Neurological: alert and oriented Last oral intake: >/= 8 hours ASA classification: III Emergent: no Anesthetic plan: proceed Anesthesia type and monitoring: general GIVS and standard monitoring Results Review: All pre-operative results and documents have been reviewed as part of the pre-operative evaluation. HTN, hyperlipidemia, SARAH on CPAP. Informed Consent: The patient's anesthetic plan and its attendant risks and benefits were discussed with the patient/family/POA. Questions were solicited and answers provided to the satisfaction of the patient/family/POA.
[2025-05-23] MEDS: ACETAMINOPHEN 500 MG TABLET 1000 MG PO (14:04)
[2025-05-23 14:05] VITALS: BP 148/98; PULSE 88; RESP 16; TEMP 36.3; O2SAT 96
[2025-05-23] MEDS: LIDOCAINE 1% LOCAL INJ 10 ML VIAL INFILTRATE (14:32)
[2025-05-23] MEDS: ceFAZolin 3 GM/D5W 100 ML 100 ML IVPB (14:32)
[2025-05-23] MEDS: BUPivacaine HCL 0.5% 10 ML AMP INFILTRATE (14:32)
[2025-05-23 15:52] VITALS: BP 115/64; PULSE 94; RESP 18; O2SAT 96
[2025-05-23 16:15] VITALS: BP 127/80; PULSE 85; RESP 18; O2SAT 96
[2025-05-23 16:45] VITALS: BP 126/81; PULSE 82; RESP 18
== END 2025-05-23 16:55 | disposition home or self-care (01) ==
PROVIDERS: PCP Family Medicine; Visit Provider Plastic Surgery
PROC: (CPT 26055; principal; 2025-05-23 13:00)
DX: S66.127A Laceration of flexor muscle, fascia and tendon of left little finger at wrist and hand level, initial encounter (principal); W26.0XXA Contact with knife, initial encounter
CPT/HCPCS: 26370; 99199; A9270; C1713; J0690; J2003; J2250; J2704; J3010; J7120